=== PATIENT | male | born 1990 | race Caucasian/White ===

== ENCOUNTER 2017-11-30 20:30 | Emergency (ER) | payer MEDICAID ==
[2017-11-30 20:39] VITALS: BP 138/78
[2017-11-30] MEDS ORDERED: LORazepam 1 MG Tab PO ONE (21:39)
--- NOTE | 2017-11-30 21:50 | EDM.PDOCBH ---
ED HPI GENERAL MEDICAL PROBLEM - General Chief Complaint: Behavioral/Psych Stated Complaint: PANIC ATTACKS Time Seen by Provider: 11/30/17 21:03 Source of Information: Reports: Patient History Limitations: Reports: No Limitations - History of Present Illness INITIAL COMMENTS - FREE TEXT/NARRATIVE: patient is a 26-year-old male with a history of Asperger's, bipolar, anxiety, and depression. States has as of recent he has not been able to sleep because of his increased anxiety. He states due to his Asperger's he's not been able to get a job thus is living at a friend's place and does not have any money. He is overwhelmed with stress related to this. States when he does fall asleep he commonly will wake up anxious with difficulty getting back to sleep. He does not feel well rested. He denies any suicidal ideations, hallucinations, homicidal ideation, or any additional complaints. There's been no infectious concerns. Does not use recreational drugs and/or does not smoke. Alcohol use is very rarely. He has not on any medications at this time. He has not tried any [id number] medications. He is requesting something to allow him to sleep this evening. He admits in 2014 he was admitted to for psych evaluation. States at that time his was him and taking his child away. He just broke down. He Would not talk. Did not feel safe in the ED. Thus prompted evaluation at that time. - Related Data Allergies Allergy/AdvReac Type Severity Reaction Status Date / Time No Known Allergies Allergy Verified 11/30/17 20:39 Home Meds: Home Meds . [No Known Home Meds] 05/31/15 [History] Past Medical History HEENT History: Reports: Impaired Vision Psychiatric History: Reports: Anxiety, Bipolar, Depression Other Psychiatric History: "Bipolar 2" and Asperger syndrome - Past Surgical History Other HEENT Surgeries/Procedures: [place] teeth removal Social & Family History - Family History Family Medical History: Noncontributory - Tobacco Use Smoking Status *Q: Never Smoker - Recreational Drug Use Recreational Drug Use: No ED ROS GENERAL - Review of Systems Review Of Systems: ROS reveals no pertinent complaints other than HPI. ED EXAM, BEHAVIORAL HEALTH - Physical Exam Exam: See Below Exam Limited By: No Limitations General Appearance: Alert, WD/WN, No Apparent Distress Ears: Hearing Grossly Normal Nose: Normal Inspection Throat/Mouth: Normal Voice, No Airway Compromise Neck: Normal Inspection, Supple Respiratory/Chest: No Respiratory Distress, Lungs Clear, Normal Breath Sounds, No Accessory Muscle Use Cardiovascular: Normal Peripheral Pulses, Regular Rate, Rhythm, No Murmur Extremities: Normal Inspection Neurological: Alert, Normal Mood/Affect, CN II-XII Intact, Normal Cognition, No Motor/Sensory Deficits, Oriented x 3 Psychiatric: Alert, Normal Affect, Normal Cognition, Normal Mood, Oriented. No : Non-Communicative, Poor Eye Contact, Uncooperative, Withdrawn, Homicidal Thoughts, Suicidal Plan, Suicidal Thoughts, Auditory Hallucinations, Visual Hallucinations, Paranoid Thoughts, Threatening Behavior Skin Exam: Warm, Dry, Intact, Normal color, No rash COURSE, BEHAVIORAL HEALTH COMP - Course Vital Signs: Last Vital Signs Temp 98.7 F 11/30/17 20:36 Pulse 76 11/30/17 20:36 Resp 18 11/30/17 20:36 BP 138/78 11/30/17 20:36 Pulse Ox 96 11/30/17 20:36 Orders, Labs, Meds: Medications Discontinued Medications Generic Name Dose Route Start Last Admin Trade Name Enzo PRLoren Reason Stop Dose Admin Lorazepam 1 mg 11/30/17 21:39 11/30/17 21:45 Ativan PO 11/30/17 21:40 1 mg ONETIME ONE Administration Re-Assessment/Re-Exam: Will go ahead and provide 1 mg of ativan PO here in the E.D. Patient was instructed to go home and sleep. Refrain from alcohol use. He has an appt with [facility] for this coming Tuesday. Patient will return to the E.D. if he should have any addition concerns. Departure - Departure Time of Disposition: 21:53 Disposition: Home, Self-Care 01 Condition: Good Clinical Impression: Anxiety, Sleep deprivation - Discharge Information Instructions: Generalized Anxiety Disorder, Adult, Insomnia Referrals: PCP,None [Primary Care Provider] - Forms: ED Department Discharge Additional Instructions: No driving this evening since receiving a sedative medication while in the ED. Go home and find a dark room to sleep with no distractions. See a psych provider at [facility] as scheduled this coming Tuesday. Return to the ED if you develop any new or worsening symptoms as discussed.
== END 2017-11-30 22:04 | disposition home or self-care (01) ==
LOC: JD.ED 20:30
DX: F41.9 Anxiety disorder, unspecified (principal); Z72.820 Sleep deprivation
CPT/HCPCS: 99283; A9270